=== PATIENT | female | born 2000 | race African-American/Black ===

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

== ENCOUNTER 2019-02-04 17:20 | Emergency (ER) | payer OTHER ==
[~2019-02-04] VITALS: Ht 170.1 cm; Wt 59.0 kg
[2019-02-04] MEDS ORDERED: NAPR-1071 PO (17:47)
[2019-02-04] MEDS ORDERED: METH-313 PO (17:47)
--- NOTE | 2019-02-04 17:47 | ED Neck-Back Pain/Injury ---
General Chief Complaint: Head/Cervical Problems Stated Complaint: NECK PAIN Nursing Triage Note: Pt to ED from work. Pt reports lifting a box at work this morning and felt something pop in the L side of the neck. Pt reports continuing to work all day and now symptoms have worsened. Nursing Sepsis Screen: No Definite Risk Source of Information: Patient Exam Limitations: No Limitations History of Present Illness Date Seen by Provider: Feb 04, 2019 Time Seen by Provider: 17:44 Initial Comments To ER with reports of lifting a box at work and feeling a sudden sensation of pain in her left neck no injury no falls. Location: C-Spine Timing/Duration: 1-3 Hours Severity: Moderate Pain/Injury Location: Neck Associated Symptoms: denies symptoms Allergies and Home Medications Allergies Coded Allergies: No Known Drug Allergies (Unverified , 01/12/18) Home Medications Metronidazole 500 Mg Tablet, 500 MG PO BID Prescribed by: MAURICE JOHNSTON on 02/03/18 1414 Nitrofurantoin Macrocrystal 100 Mg Capsule, 100 MG PO BID Prescribed by: MAURICE JOHNSTON on 02/03/18 1414 Ondansetron 8 Mg Tab.rapdis, 8 MG SL Q4H PRN for NAUSEA/VOMITING-1ST LINE Prescribed by: TRES MCMULLEN on 01/12/18 0949 Ondansetron 8 Mg Tab.rapdis, 8 MG PO Q6H PRN for NAUSEA/VOMITING Prescribed by: PRADEEP GEIGER on 04/20/18 2301 Patient Home Medication List Home Medication List Reviewed: Yes Review of Systems Constitutional: see HPI EENTM: see HPI Respiratory: no symptoms reported Cardiovascular: no symptoms reported Genitourinary: no symptoms reported Musculoskeletal: see HPI, neck pain Skin: no symptoms reported Psychiatric/Neurological: No Symptoms Reported Past Whrmftf-Fwccuo-Feklqk Hx Patient Social History Alcohol Use: Occasionally Uses Recreational Drug Use: Yes Drug of Choice: Marijuana 2nd Hand Smoke Exposure: No Recent Foreign Travel: No Contact w/Someone Who Travel: No Recent Infectious Disease Expo: No Recent Hopitalizations: No Seasonal Allergies Seasonal Allergies: No Past Medical History Surgeries: No Respiratory: No Currently Using CPAP: No Currently Using BIPAP: No Cardiac: No Neurological: No Genitourinary: No Gastrointestinal: No Musculoskeletal: No Endocrine: No HEENT: No Cancer: No Psychosocial: Yes Anxiety, Depression Integumentary: No Blood Disorders: No Family Medical History CHF (congestive heart failure) GRANDMA Diabetes mellitus 19 MOTHER GRANDMA No Pertinent Family Hx, Hypertension Physical Exam Vital Signs Vital Signs - First Documented 02/04/19 17:28 Temp 36.8 Pulse 67 Resp 14 B/P (MAP) 117/65 (82) Pulse Ox 99 O2 Delivery Room Air Capillary Refill : Less Than 3 Seconds Height, Weight, BMI Height: 5'7.00" Weight: 125lbs. 0oz. [id number]; 20.00 BMI Method:Stated General Appearance: No Apparent Distress, WD/WN HEENT: PERRL/EOMI, TMs Normal, Normal ENT Inspection Neck: Full Range of Motion, Normal Inspection, Limited Range of Motion, Tender Lateral (left-sided palpable muscle spasm) Respiratory: Normal Breath Sounds, No Accessory Muscle Use, No Respiratory Distress Gastrointestinal: Normal Bowel Sounds, Non Tender, Soft Neurologic/Psychiatric: Alert, Oriented x3 Skin: Normal Color, Warm/Dry Progress/Results/Core Measures Results/Orders Vital Signs/I&O 02/04/19 17:28 Temp 36.8 Pulse 67 Resp 14 B/P (MAP) 117/65 (82) Pulse Ox 99 O2 Delivery Room Air Blood Pressure Mean: 82 POS Departure Impression Primary Impression: Cervical muscle strain Qualified Codes: S16.1XXA - Strain of muscle, fascia and tendon at neck level, initial encounter Additional Impression: Torticollis Disposition: 01 HOME, SELF-CARE Condition: Stable Departure-Patient Inst. Decision time for Depature: 17:45 Ref[facility]: [facility] (PCP/Family) Primary Care Physician Patient Instructions: Torticollis, Adult Add. Discharge Instructions: 1. Return to ER for any concerns 2. Follow-up with your doctor next week 3. Medication as directed. You can try ice or heat, whichever seems to be more helpful as the one U should continue to use. All discharge instructions reviewed with patient and/or family. Voiced understanding. Scripts Naproxen (Naprosyn) 500 Mg Tablet 500 MG PO BID PRN for PAIN-MILD (1-4), #30 TAB 0 Refills Prov: SAVANNAH GLASER APRN 02/04/19 Methocarbamol (Robaxin-750) 750 Mg Tablet 750 MG PO Q4H PRN for PAIN-MODERATE (5-7), #20 TAB Prov: SAVANNAH GLASER APRN 02/04/19 SAVANNAH GLASER APRN Feb 04, 2019 17:47 POS
[2019-02-04 18:09] VITALS: BP 117/65
== END 2019-02-04 17:54 | disposition home or self-care (01) ==
LOC: EDUNIT# 17:20 → ER 17:22
DX: S16.1XXA Strain of muscle, fascia and tendon at neck level, initial encounter (principal); M43.6 Torticollis; F41.9 Anxiety disorder, unspecified; F32.9 Major depressive disorder, single episode, unspecified; Z82.49 Family history of ischemic heart disease and other diseases of the circulatory system; X50.0XXA Overexertion from strenuous movement or load, initial encounter; Y92.59 Other trade areas as the place of occurrence of the external cause
CPT/HCPCS: 99282

== ENCOUNTER 2019-06-27 19:54 | Emergency (ER) | payer SELFPAY ==
[~2019-06-27] VITALS: Ht 168 cm; Wt 55.5 kg
[~2019-06-27 19:54] MED LIST changes: +METH-313 PO; +NAPR-1071 PO
--- OUTSIDE RECORDS SUMMARY | 2019-06-27 20:00 | XMS REPORT | Continuity of Care Document ---
Author Organization Unknown Address Unknown Phone Unavailable Allergies Active Description Code Type Severity Reaction Onset Reported/Identified Relationship to Patient Clinical Status Yes No Known Drug Allergies [id number] Drug Allergy Unknown N/A 01/12/2018 Medications There is no data. Problems Date Dx Coded Attending Type Code Diagnosis Diagnosed By 06/10/2017 SAVANNAH GLASER APRN Ot N39 .0 URINARY TRACT INFECTION, SITE NOT SPECIF 06/10/2017 SAVANNAH GLASER LEATHER COLORER Ot R11 .2 NAUSEA WITH VOMITING, UNSPECIFIED 06/10/2017 SAVANNAH GLASER APRN Ot R19 .7 DIARRHEA, UNSPECIFIED 06/12/2017 SAVANNAH GLASER APRN Ot N39 .0 URINARY TRACT INFECTION, SITE NOT SPECIF 06/12/2017 SAVANNAH GLASER LEATHER COLORER Ot R11 .2 NAUSEA WITH VOMITING, UNSPECIFIED 06/12/2017 SAVANNAH GLASER APRN Ot R19 .7 DIARRHEA, UNSPECIFIED 01/12/2018 MCMULLEN DO, TRES Ot D72.82 9 ELEVATED WHITE BLOOD CELL COUNT, UNSPECI 01/12/2018 MCMULLEN DO, TRES Ot F12.10 CANNABIS ABUSE, UNCOMPLICATED 01/12/2018 MCMULLEN DO, TRES Ot F32.9 MAJOR DEPRESSIVE DISORDER, SINGLE EPISOD 01/12/2018 MCMULLEN DO, TRES Ot R10.9 UNSPECIFIED ABDOMINAL PAIN 01/12/2018 MCMULLEN DO, TRES Ot R11.2 NAUSEA WITH VOMITING, UNSPECIFIED 01/12/2018 MCMULLEN DO, TRES Ot D72.82 9 ELEVATED WHITE BLOOD CELL COUNT, UNSPECI 01/12/2018 MCMULLEN DO, TRES Ot F12.10 CANNABIS ABUSE, UNCOMPLICATED 01/12/2018 MCMULLEN DO, TRES Ot F32.9 MAJOR DEPRESSIVE DISORDER, SINGLE EPISOD 01/12/2018 MCMULLEN DO, TRES Ot R10.9 UNSPECIFIED ABDOMINAL PAIN 01/12/2018 MCMULLEN DO, TRES Ot R11.2 NAUSEA WITH VOMITING, UNSPECIFIED 02/03/2018 PRESTON PRESCOTT, MAURICE J Ot B96. 89 OTH BACTERIAL AGENTS THE CAUSE OF DIS 02/03/2018 ALLISON JOHNSTON MDUS J Ot F12. 10 CANNABIS ABUSE, UNCOMPLICATED 02/03/2018 ALLISON JOHNSTON MDUS J Ot F17.200 NICOTINE DEPENDENCE, UNSPECIFIED, UNCOMP 02/03/2018 MAURICE JOHNSTON MD J Ot F32. 9 MAJOR DEPRESSIVE DISORDER, SINGLE EPISOD 02/03/2018 MAURICE JOHNSTON MD J Ot F41. 9 ANXIETY DISORDER, UNSPECIFIED 02/03/2018 MAURICE JOHNSTON MD J Ot N39. 0 URINARY TRACT INFECTION, SITE NOT SPECIF 02/03/2018 ALLISON JOHNSTON MDUS J Ot N76. 0 ACUTE VAGINITIS 02/03/2018 MAURICE JOHNSTON MD J Ot R10. 30 LOWER ABDOMINAL PAIN, UNSPECIFIED 02/03/2018 MAURICE JOHNSTON MD J Ot Z82. 49 FAMILY HX OF ISCHEM HEART DIS AND OTH DI 02/05/2018 MAURICE JOHNSTON MD J Ot B96. 89 OTH BACTERIAL AGENTS THE CAUSE OF DIS 02/05/2018 MAURICE JOHNSTON MD Ot F12. 10 CANNABIS ABUSE, UNCOMPLICATED 02/05/2018 MAURICE JOHNSTON MD J Ot F17.200 NICOTINE DEPENDENCE, UNSPECIFIED, UNCOMP 02/05/2018 MAURICE JOHNSTON MD Ot F32. 9 MAJOR DEPRESSIVE DISORDER, SINGLE EPISOD 02/05/2018 MAURICE JOHNSTON MD J Ot F41. 9 ANXIETY DISORDER, UNSPECIFIED 02/05/2018 MAURICE JOHNSTON MD J Ot N39. 0 URINARY TRACT INFECTION, SITE NOT SPECIF 02/05/2018 MAURICE JOHNSTON MD J Ot N76. 0 ACUTE VAGINITIS 02/05/2018 MAURICE JOHNSTON MD J Ot R10. 30 LOWER ABDOMINAL PAIN, UNSPECIFIED 02/05/2018 MAURICE JOHNSTON MD J Ot Z82. 49 FAMILY HX OF ISCHEM HEART DIS AND OTH DI 02/09/2018 MAURICE JOHNTSON MD J Ot B96. 89 OTH BACTERIAL AGENTS THE CAUSE OF DIS 02/09/2018 MAURICE JOHNSTON MD J Ot F12. 10 CANNABIS ABUSE, UNCOMPLICATED 02/09/2018 ALLISON JOHNSTON MDUS J Ot F17.200 NICOTINE DEPENDENCE, UNSPECIFIED, UNCOMP 02/09/2018 PRESTON MD, MAURICE J Ot F32. 9 MAJOR DEPRESSIVE DISORDER, SINGLE EPISOD 02/09/2018 PRESTON PRESCOTT, MAURICE Roe Ot F41. 9 ANXIETY DISORDER, UNSPECIFIED 02/09/2018 PRESTON PRESCOTT, MAURICE Roe Ot N39. 0 URINARY TRACT INFECTION, SITE NOT SPECIF 02/09/2018 PRESTON PRESCOTT, MAURICE Roe Ot N76. 0 ACUTE VAGINITIS 02/09/2018 MAURICE JOHNSTON MD Ot R10. 30 LOWER ABDOMINAL PAIN, UNSPECIFIED 02/09/2018 PRESTON PRESCOTT, MAURICE Roe Ot Z82. 49 FAMILY HX OF ISCHEM HEART DIS AND OTH DI 04/20/2018 PRADEEP HERNANDEZ Ot E86.0 DEHYDRATION 04/20/2018 PRADEEP HERNANDEZ Ot F12.10 CANNABIS ABUSE, UNCOMPLICATED 04/20/2018 PRADEEP HERNANDEZ Ot F32.9 MAJOR DEPRESSIVE DISORDER, SINGLE EPISOD 04/20/2018 PRADEEP HERNANDEZ Ot F41.9 ANXIETY DISORDER, UNSPECIFIED 04/20/2018 PRADEEP HERNANDEZ Ot R11.2 NAUSEA WITH VOMITING, UNSPECIFIED 04/20/2018 PRADEEP HERNANDEZ Ot R19.7 DIARRHEA, UNSPECIFIED 04/20/2018 TANIA HERNANDEZEN Mesha Ot Z82.49 FAMILY HX OF ISCHEM HEART DIS AND OTH DI 04/21/2018 ОЛЬГА MIDDLETON MD Ot F12.10 CANNABIS ABUSE, UNCOMPLICATED 04/21/2018 ОЛЬГА MIDDLETON MD Ot F17.210 NICOTINE DEPENDENCE, CIGARETTES, UNCOMPL 04/21/2018 ОЛЬГА MIDDLETON MD Ot F32.9 MAJOR DEPRESSIVE DISORDER, SINGLE EPISOD 04/21/2018 ОЛЬГА MIDDLETON MD Ot F41.9 ANXIETY DISORDER, UNSPECIFIED 04/21/2018 ОЛЬГА MIDDLETON MD Ot G43.A0 CYCLICAL VOMITING, NOT INTRACTABLE 04/21/2018 ОЛЬГА MIDDLETON MD Ot R11.2 NAUSEA WITH VOMITING, UNSPECIFIED 04/21/2018 ОЛЬГА MIDDLETON MD Ot Z82.49 FAMILY HX OF ISCHEM HEART DIS AND OTH DI 04/23/2018 ОЛЬГА MIDDLETON MD Ot F12.10 CANNABIS ABUSE, UNCOMPLICATED 04/23/2018 ОЛЬГА MIDDLETON MD Ot F17.210 NICOTINE DEPENDENCE, CIGARETTES, UNCOMPL 04/23/2018 KANE PRESCOTT, ОЛЬГА Mohan Ot F32.9 MAJOR DEPRESSIVE DISORDER, SINGLE EPISOD 04/23/2018 KANE PRESCOTT, ОЛЬГА Mohan Ot F41.9 ANXIETY DISORDER, UNSPECIFIED 04/23/2018 ОЛЬГА MIDDLETON MD Ot G43.A0 CYCLICAL VOMITING, NOT INTRACTABLE 04/23/2018 ОЛЬГА MIDDLETON MD Ot R11.2 NAUSEA WITH VOMITING, UNSPECIFIED 04/23/2018 ОЛЬГА MIDDLETON MD Ot Z82.49 FAMILY HX OF ISCHEM HEART DIS AND OTH DI 02/04/2019 SAVANNAH GLASER APRN Ot F32 .9 MAJOR DEPRESSIVE DISORDER, SINGLE EPISOD 02/04/2019 SAVANNAH GLASER APRN Ot F41 .9 ANXIETY DISORDER, UNSPECIFIED 02/04/2019 SAVANNAH GLASER APRN Ot M43 .6 TORTICOLLIS 02/04/2019 SAVANNAH GLASER APRN Ot M54 .2 CERVICALGIA 02/04/2019 SAVANNAH GLASER APRN Ot S16.1XXA STRAIN OF MUSCLE, FASCIA AND TENDON AT N 02/04/2019 SAVANNAH GLASER APRN Ot X50.0XXA OVEREXERTION FROM STRENUOUS MOVEMENT OR 02/04/2019 SAVANNAH GLASER APRN Ot Y92.[address] 02/04/2019 SAVANNAH GLASER APRN Ot Z82.49 FAMILY HX OF ISCHEM HEART DIS AND OTH DI 02/07/2019 SAVANNAH GLASER APRN Ot F32 .9 MAJOR DEPRESSIVE DISORDER, SINGLE EPISOD 02/07/2019 SAVANNAH GLASER APRN Ot F41 .9 ANXIETY DISORDER, UNSPECIFIED 02/07/2019 SAVANNAH GLASER APRN Ot M43 .6 TORTICOLLIS 02/07/2019 SAVANNAH GLASER APRN Ot M54 .2 CERVICALGIA 02/07/2019 SAVANNAH GLASER APRN Ot S16.1XXA STRAIN OF MUSCLE, FASCIA AND TENDON AT N 02/07/2019 SAVANNAH GLASER APRN Ot X50.0XXA OVEREXERTION FROM STRENUOUS MOVEMENT OR 02/07/2019 SAVANNAH GLASER APRN Ot Y92.[address] 02/07/2019 SAVANNAH GLASER APRN Ot Z82.49 FAMILY HX OF ISCHEM HEART DIS AND OTH DI 02/09/2019 SAVANNAH GLASER APRN Ot F32 .9 MAJOR DEPRESSIVE DISORDER, SINGLE EPISOD 02/09/2019 SAVANNAH GLASER APRN Ot F41 .9 ANXIETY DISORDER, UNSPECIFIED 02/09/2019 SAVANNAH GLASER APRN Ot M43 .6 TORTICOLLIS 02/09/2019 SAVANNAH GLASER APRN Ot M54 .2 CERVICALGIA 02/09/2019 SAVANNAH GLASER APRN Ot S16.1XXA STRAIN OF MUSCLE, FASCIA AND TENDON AT N 02/09/2019 SAVANNAH GLASER APRN Ot X50.0XXA OVEREXERTION FROM STRENUOUS MOVEMENT OR 02/09/2019 SAVANNAH GLASER APRN Ot Y92.[address] 02/09/2019 SAVANNAH GLASER APRN Ot Z82.49 FAMILY HX OF ISCHEM HEART DIS AND OTH DI Procedures There is no data. Results Test Result Range Complete blood count (CBC) with automate d white blood cell (WBC) differential - 06/10/17 13:24 Blood leukocytes automated count (number/volume) 18.6 10*3/uL 4.3-11.0 Blood erythrocytes automated count (number/volume) 5.34 10*6/uL 4.35-5.85 Venous blood hemoglobin measurement (mass/volume) 11.7 g/dL 11.5-16.0 Blood hematocrit (volume fraction) 38 % 35-52 Automated erythrocyte mean corpuscular volume 71 [ foz_us] 80-99 Automated erythrocyte mean corpuscular h emoglobin (mass per erythrocyte) 22 pg 25-34 Automated erythrocyte mean corpuscular h emoglobin concentration measurement (mass/volume) 31 g/dL 32-36 Automated erythrocyte distribution width ratio 18. 2 % 10.0- 14.5 Automated blood platelet count (count/volume) 414 10*3/uL 130-400 Automated blood platelet mean volume measurement 10.8 [foz_us] 7.4-10.4 Automated blood neutrophils/100 leukocytes 89 % 42-75 Automated blood lymphocytes/100 leukocytes 6 % 12-44 Blood monocytes/100 leukocytes 5 % 0-12 Automated blood eosinophils/100 leukocytes 0 % 0-10 Automated blood basophils/100 leukocytes 0 % 0-10 Blood neutrophils automated count (number/volume) 16.6 10*3 1.8-7.8 Blood lymphocytes automated count (number/volume) 1.1 10*3 1.0-4.0 Blood monocytes automated count (number/volume) 1. 0 10*3 0.0-1.0 Automated eosinophil count 0.0 10*3/uL 0 .0-0.3 Automated blood basophil count (count/volume) 0.0 10*3/uL 0.0-0.1 Comprehensive metabolic panel - 06/10/17 13:24 Serum or plasma sodium measurement (moles/volume) 138 mmol/L 135-145 Serum or plasma potassium measurement (moles/volume) 4.4 mmol/L 3.6-5.0 Serum or plasma chloride measurement (moles/volume) 107 mmol/L 98-107 Carbon dioxide 19 mmol/L 21-32 Serum or plasma anion gap determination (moles/volume) 12 mmol/L 5-14 Serum or plasma urea nitrogen measurement (mass/volume ) 14 mg/dL 7-18 Serum or plasma creatinine measurement (mass/volume) 0.80 mg/dL 0.60-1.30 Serum or plasma urea nitrogen/creatinine mass ratio 18 NRG Serum or plasma creatinine measurement w ith calculation of estimated glomerular filtration rate > NRG Serum or plasma glucose measurement (mass/volume) 133 mg/dL 70-105 Serum or plasma calcium measurement (mass/volume) 10.3 mg/dL 8.5-10.1 Serum or plasma total bilirubin measurement (mass/volu me) 0.4 mg/dL 0.1-1.0 Serum or plasma alkaline phosphatase en surement (enzymatic activity/volume) 97 U/L 60-350 Serum or plasma aspartate aminotransfera se measurement (enzymatic activity/volume) 26 U/L 5-34 Serum or plasma alanine aminotransferase measurement (enzymatic activity/volume) 15 U/L 0-55 Serum or plasma protein measurement (mass/volume) 8.3 g/dL 6.4-8.2 Serum or plasma albumin measurement (mass/volume) 4.8 g/dL 3.2-4.5 Blood manual differential performed dete ction - 06/10/17 13:24 Blood monocytes/100 leukocytes 5 % NRG Manual blood segmented neutrophils/100 leukocytes 84 % NRG Manual blood lymphocytes/100 leukocytes 11 % NRG Complete urinalysis with reflex to cultu re - 06/10/17 14:03 Urine color determination YELLOW NRG Urine clarity determination SLIGHTLY CLOUDY NRG Urine pH measurement by test strip 8 5-9 Specific gravity of urine by test strip 1.010 1.016-1.022 Urine protein assay by test strip, semi-quantitative 2+ NEGATIVE Urine glucose detection by automated test strip NE GATIVE NEGATIVE Erythrocytes detection in urine sediment by light micr oscopy 1+ NEGATIVE Urine ketones detection by automated test strip 4+ NEGATIVE Urine nitrite detection by test strip NEGATIVE NEGATIVE Urine total bilirubin detection by test strip NEGA TIVE NEGATIVE Urine urobilinogen measurement by automated test strip (mass/volume) NORMAL NORMAL Urine leukocyte esterase detection by dipstick 2+ NEGATIVE Automated urine sediment erythrocyte cou nt by microscopy (number/high power field) NONE NRG Automated urine sediment leukocyte count by microscopy (number/high power field) [HPF] NRG Bacteria detection in urine sediment by light microsco py FEW NRG Squamous epithelial cells detection in u rine sediment by light microscopy 10-25 NRG Crystals detection in urine sediment by light microsco py NONE NRG Casts detection in urine sediment by light microscopy NONE NRG Mucus detection in urine sediment by light microscopy NEGATIVE NRG Complete urinalysis with reflex to culture YES NRG Amorphous sediment detection in urine sediment by ligh t microscopy FEW ZOLTAN PHOSPHATE NRG Bacterial urine culture - 06/10/17 14:03 Bacterial urine culture [id number] NRG COLONY COUNT >100,000/ML NRG Complete blood count (CBC) with automate d white blood cell (WBC) differential - 01/11/18 23:20 Blood leukocytes automated count (number/volume) 12.8 10*3/uL 4.3-11.0 Blood erythrocytes automated count (number/volume) 4.69 10*6/uL 4.35-5.85 Venous blood hemoglobin measurement (mass/volume) 10.2 g/dL 11.5-16.0 Blood hematocrit (volume fraction) 32 % 35-52 Automated erythrocyte mean corpuscular volume 69 [ foz_us] 80-99 Automated erythrocyte mean corpuscular h emoglobin (mass per erythrocyte) 22 pg 25-34 Automated erythrocyte mean corpuscular h emoglobin concentration measurement (mass/volume) 32 g/dL 32-36 Automated erythrocyte distribution width ratio 19. 0 % 10.0- 14.5 Automated blood platelet count (count/volume) 344 10*3/uL 130-400 Automated blood platelet mean volume measurement 10.0 [foz_us] 7.4-10.4 Automated blood neutrophils/100 leukocytes 73 % 42-75 Automated blood lymphocytes/100 leukocytes 18 % 12-44 Blood monocytes/100 leukocytes 8 % 0-12 Automated blood eosinophils/100 leukocytes 1 % 0-10 Automated blood basophils/100 leukocytes 0 % 0-10 Blood neutrophils automated count (number/volume) 9.4 10*3 1.8-7.8 Blood lymphocytes automated count (number/volume) 2.4 10*3 1.0-4.0 Blood monocytes automated count (number/volume) 1. 0 10*3 0.0-1.0 Automated eosinophil count 0.1 10*3/uL 0 .0-0.3 Automated blood basophil count (count/volume) 0.0 10*3/uL 0.0-0.1 Serum or plasma choriogonadotropin (preg chester test) detection - 01/11/18 23:20 Serum or plasma choriogonadotropin ( test) de tection NEGATIVE NEGATIVE Comprehensive metabolic panel - 01/11/18 23:20 Serum or plasma sodium measurement (moles/volume) 143 mmol/L 135-145 Serum or plasma potassium measurement (moles/volume) 3.7 mmol/L 3.6-5.0 Serum or plasma chloride measurement (moles/volume) 109 mmol/L 98-107 Carbon dioxide 19 mmol/L 21-32 Serum or plasma anion gap determination (moles/volume) 15 mmol/L 5-14 Serum or plasma urea nitrogen measurement (mass/volume ) 10 mg/dL 7-18 Serum or plasma creatinine measurement (mass/volume) 0.80 mg/dL 0.60-1.30 Serum or plasma urea nitrogen/creatinine mass ratio 13 NRG Serum or plasma creatinine measurement w ith calculation of estimated glomerular filtration rate > NRG Serum or plasma glucose measurement (mass/volume) 130 mg/dL 70-105 Serum or plasma calcium measurement (mass/volume) 9.7 mg/dL 8.5-10.1 Serum or plasma total bilirubin measurement (mass/volu me) 0.4 mg/dL 0.1-1.0 Serum or plasma alkaline phosphatase en surement (enzymatic activity/volume) 85 U/L 40-136 Serum or plasma aspartate aminotransfera se measurement (enzymatic activity/volume) 18 U/L 5-34 Serum or plasma alanine aminotransferase measurement (enzymatic activity/volume) 19 U/L 0-55 Serum or plasma protein measurement (mass/volume) 7.5 g/dL 6.4-8.2 Serum or plasma albumin measurement (mass/volume) 4.7 g/dL 3.2-4.5 Lipase - 01/11/18 23:20 Lipase 14 U/L 8-78 Serum or plasma ethanol measurement (mas s/volume) - 01/11/18 23:20 Serum or plasma ethanol measurement (mass/volume) < mg/dL <10 Complete urinalysis with reflex to cultu re - 01/12/18 00:27 Urine color determination YELLOW NRG Urine clarity determination VERY CLOUDY NRG Urine pH measurement by test strip 8 5-9 Specific gravity of urine by test strip 1.010 1.016-1.022 Urine protein assay by test strip, semi-quantitative 1+ NEGATIVE Urine glucose detection by automated test strip NE GATIVE NEGATIVE Erythrocytes detection in urine sediment by light micr oscopy 5+ NEGATIVE Urine ketones detection by automated test strip 3+ NEGATIVE Urine nitrite detection by test strip NEGATIVE NEGATIVE Urine total bilirubin detection by test strip NEGA TIVE NEGATIVE Urine urobilinogen measurement by automated test strip (mass/volume) NORMAL NORMAL Urine leukocyte esterase detection by dipstick NEG ATIVE NEGATIVE Automated urine sediment erythrocyte cou nt by microscopy (number/high power field) [HPF] NRG Automated urine sediment leukocyte count by microscopy (number/high power field) NONE NRG Bacteria detection in urine sediment by light microsco py NEGATIVE NRG Squamous epithelial cells detection in u rine sediment by light microscopy 2-5 NRG Crystals detection in urine sediment by light microsco py PRESENT NRG Casts detection in urine sediment by light microscopy NONE NRG Mucus detection in urine sediment by light microscopy NEGATIVE NRG Complete urinalysis with reflex to culture NO NRG Amorphous sediment detection in urine sediment by ligh t microscopy LARGE ZOLTAN PHOSPHATE NRG Urine drug screening test - 01/12/18 00: 27 Urine phencyclidine detection by screening method NEGATIVE NEGATIVE Urine benzodiazepines detection by screening method NEGATIVE NEGATIVE Urine cocaine detection NEGATIVE NEGATI VE Urine amphetamines detection by screening method N EGATIVE NEGATIVE Urine methamphetamine detection by screening method NEGATIVE NEGATIVE Urine cannabinoids detection by screening method P OSITIVE NEGATIVE Urine opiates detection by screening method NEGATI VE NEGATIVE Urine barbiturates detection NEGATIVE N EGATIVE Screening urine tricyclic antidepressants detection NEGATIVE NEGATIVE Urine methadone detection by screening method NEGA TIVE NEGATIVE Urine oxycodone detection NEGATIVE NEGA TIVE Urine propoxyphene detection NEGATIVE N EGATIVE Complete urinalysis with reflex to cultu re - 02/03/18 12:30 Urine color determination YELLOW NRG Urine clarity determination CLEAR NR G Urine pH measurement by test strip 6 5-9 Specific gravity of urine by test strip 1.020 1.016-1.022 Urine protein assay by test strip, semi-quantitative 1+ NEGATIVE Urine glucose detection by automated test strip NE GATIVE NEGATIVE Erythrocytes detection in urine sediment by light micr oscopy 3+ NEGATIVE Urine ketones detection by automated test strip 4+ NEGATIVE Urine nitrite detection by test strip NEGATIVE NEGATIVE Urine total bilirubin detection by test strip NEGA TIVE NEGATIVE Urine urobilinogen measurement by automated test strip (mass/volume) 1 mg/dL NORMAL Urine leukocyte esterase detection by dipstick 2+ NEGATIVE Automated urine sediment erythrocyte cou nt by microscopy (number/high power field) [HPF] NRG Automated urine sediment leukocyte count by microscopy (number/high power field) [HPF] NRG Bacteria detection in urine sediment by light microsco py TRACE NRG Squamous epithelial cells detection in u rine sediment by light microscopy 2-5 NRG Crystals detection in urine sediment by light microsco py NONE NRG Casts detection in urine sediment by light microscopy NONE NRG Mucus detection in urine sediment by light microscopy MODERATE NRG Complete urinalysis with reflex to culture YES NRG Bacterial urine culture - 02/03/18 12:30 Bacterial urine culture SEE REPORT NRG COLONY COUNT . NRG Microscopic examination by wet preparati on - 02/03/18 13:10 WET PREP RESULTS NO YEAST OBSERVED, NO TRICH OMONAS OBSERVED NRG Chlamydia trachomatis DNA detection by p robe and signal amplification method - 02/03/18 13:10 Chlamydia trachomatis DNA detection by p robe and target amplification method Not Detected Not Detected Neisseria gonorrhoeae DNA detection by p robe and signal amplification method - 02/03/18 13:10 Gonorrhea amp DNA-urine Not Detected No t Detected Complete blood count (CBC) with automate d white blood cell (WBC) differential - 04/20/18 20:30 Blood leukocytes automated count (number/volume) 16.9 10*3/uL 4.3-11.0 Blood erythrocytes automated count (number/volume) 5.30 10*6/uL 4.35-5.85 Venous blood hemoglobin measurement (mass/volume) 10.6 g/dL 11.5-16.0 Blood hematocrit (volume fraction) 36 % 35-52 Automated erythrocyte mean corpuscular volume 67 [ foz_us] 80-99 Automated erythrocyte mean corpuscular h emoglobin (mass per erythrocyte) 20 pg 25-34 Automated erythrocyte mean corpuscular h emoglobin concentration measurement (mass/volume) 30 g/dL 32-36 Automated erythrocyte distribution width ratio 20. 1 % 10.0- 14.5 Automated blood platelet count (count/volume) 322 10*3/uL 130-400 Automated blood platelet mean volume measurement 10.9 [foz_us] 7.4-10.4 Automated blood neutrophils/100 leukocytes 87 % 42-75 Automated blood lymphocytes/100 leukocytes 10 % 12-44 Blood monocytes/100 leukocytes 3 % 0-12 Automated blood eosinophils/100 leukocytes 0 % 0-10 Automated blood basophils/100 leukocytes 0 % 0-10 Blood neutrophils automated count (number/volume) 14.8 10*3 1.8-7.8 Blood lymphocytes automated count (number/volume) 1.7 10*3 1.0-4.0 Blood monocytes automated count (number/volume) 0. 5 10*3 0.0-1.0 Automated eosinophil count 0.0 10*3/uL 0 .0-0.3 Automated blood basophil count (count/volume) 0.0 10*3/uL 0.0-0.1 Comprehensive metabolic panel - 04/20/18 20:30 Serum or plasma sodium measurement (moles/volume) 140 mmol/L 135-145 Serum or plasma potassium measurement (moles/volume) 3.9 mmol/L 3.6-5.0 Serum or plasma chloride measurement (moles/volume) 108 mmol/L 98-107 Carbon dioxide 19 mmol/L 21-32 Serum or plasma anion gap determination (moles/volume) 13 mmol/L 5-14 Serum or plasma urea nitrogen measurement (mass/volume ) 17 mg/dL 7-18 Serum or plasma creatinine measurement (mass/volume) 0.77 mg/dL 0.60-1.30 Serum or plasma urea nitrogen/creatinine mass ratio 22 NRG Serum or plasma creatinine measurement w ith calculation of estimated glomerular filtration rate > NRG Serum or plasma glucose measurement (mass/volume) 133 mg/dL 70-105 Serum or plasma calcium measurement (mass/volume) 9.3 mg/dL 8.5-10.1 Serum or plasma total bilirubin measurement (mass/volu me) 0.3 mg/dL 0.1-1.0 Serum or plasma alkaline phosphatase en surement (enzymatic activity/volume) 81 U/L 40-136 Serum or plasma aspartate aminotransfera se measurement (enzymatic activity/volume) 22 U/L 5-34 Serum or plasma alanine aminotransferase measurement (enzymatic activity/volume) 17 U/L 0-55 Serum or plasma protein measurement (mass/volume) 7.3 g/dL 6.4-8.2 Serum or plasma albumin measurement (mass/volume) 4.5 g/dL 3.2-4.5 CALCIUM CORRECTED 8.9 mg/dL 8.5-10.1 Lipase - 04/20/18 20:30 Lipase 9 U/L 8-78 Blood manual differential performed dete ction - 04/20/18 20:30 Blood monocytes/100 leukocytes 2 % NRG Manual blood segmented neutrophils/100 leukocytes 88 % NRG Manual blood lymphocytes/100 leukocytes 10 % NRG Blood anisocytosis detection by light microscopy M ARKED NRG Blood ovalocytes detection by light microscopy SLI GHT NRG Blood poikilocytosis detection by light microscopy MARKED NRG Blood hypochromia detection by light microscopy MO DERATE NRG Blood microcytes detection by light microscopy MOD ERATE NRG Blood spherocytes detection by light microscopy SL IGHT NRG Blood schistocytes detection by light microscopy S LIGHT NRG Serum heterophile antibody titer - 04/20 20:30 Serum heterophile antibody titer NEGATIVE NEGATIVE Influenza virus A and B antigen detectio n - 04/20/18 20:47 FLU RESULT NEGATIVE FOR INFLUENZA A AND B ANTIGENS BY IA NRG Complete urinalysis with reflex to cultu re - 04/20/18 21:42 Urine color determination YELLOW NRG Urine clarity determination CLEAR NR G Urine pH measurement by test strip 7 5-9 Specific gravity of urine by test strip 1.010 1.016-1.022 Urine protein assay by test strip, semi-quantitative NEGATIVE NEGATIVE Urine glucose detection by automated test strip NE GATIVE NEGATIVE Erythrocytes detection in urine sediment by light micr oscopy 3+ NEGATIVE Urine ketones detection by automated test strip 3+ NEGATIVE Urine nitrite detection by test strip NEGATIVE NEGATIVE Urine total bilirubin detection by test strip NEGA TIVE NEGATIVE Urine urobilinogen measurement by automated test strip (mass/volume) NORMAL NORMAL Urine leukocyte esterase detection by dipstick NEG ATIVE NEGATIVE Automated urine sediment erythrocyte cou nt by microscopy (number/high power field) [HPF] NRG Automated urine sediment leukocyte count by microscopy (number/high power field) [HPF] NRG Bacteria detection in urine sediment by light microsco py TRACE NRG Squamous epithelial cells detection in u rine sediment by light microscopy 2-5 NRG Crystals detection in urine sediment by light microsco py NONE NRG Casts detection in urine sediment by light microscopy NONE NRG Mucus detection in urine sediment by light microscopy NEGATIVE NRG Complete urinalysis with reflex to culture NO NRG Streptococcus pyogenes antigen detection - 04/20/18 22:00 Streptococcus pyogenes antigen detection NEGATIVE NEGATIVE Bacterial throat culture - 04/20/18 22:0 0 Bacterial throat culture NBS NRG HEPATITIS PROFILE - 06/07/18 09:22 HEPATITIS A IGM NON-REACTIVE NON-REACTI VE HEPATITIS B SURFACE ANTIGEN NON-REACTIVE NON-REACTIVE HEPATITIS B CORE ANTIBODY (IGM) NON-REACTIVE NON-REACTIVE HEPATITIS C ANTIBODY NON-REACTIVE NON-R EACTIVE SIGNAL TO CUT-OFF 0.03 <1.00 Encounters ACCT No. Visit Date/Time Discharge Status Pt. Type Provider Facility Loc./Unit Complaint [id number] 06/22/2019 14:20:00 06/22/2019 23:59:5 9 [facility] Outpatient PEPITO PRESCOTT, JES PEREZ TIFFANIE [facility] [id number] 06/07/2018 09:00:00 Document Registration [id number] 02/04/2019 17:22:00 17:54:00 DIS Outpatient SAVANNAH GLASER APRN Via [facility] ER NECK PAIN [id number] 04/21/2018 02:48:00 04:55:00 DIS Emergency ОЛЬГА MIDDLETON MD [facility] ER VOMITING,NAUSEA [id number] 04/20/2018 19:56:00 23:18:00 DIS Emergency PRADEEP HERNANDEZ [facility] ER VOMITTING,SHAKING,FEVE R [id number] 02/03/2018 10:41:00 14:10:00 DIS Emergency MAURICE JOHNSTON MD [facility] ER HERNIA [id number] 01/11/2018 22:53:00 018 14:16:00 DIS Inpatient TRES MCMULLEN DO, V [facility] 4TH GENERALIZED ABD PAIN,IN TRACTABLE N,V [id number] 06/10/2017 12:25:00 15:44:00 DIS Emergency SAVANNAH GLASER APRN [facility] ER CHEST DISCOMFORT/SOB/VO MITING
[2019-06-27] MEDS ORDERED: FAMOTIDINE 20MG/2ML IV (PEPCID) IV STA (20:14)
[2019-06-27] MEDS ORDERED: LACTATED RINGERS 1,000 ML IV STA ×2 (20:14→20:50)
[2019-06-27] MEDS ORDERED: KETOROLAC 30 MG/ML VIAL IVP STA (20:14)
[2019-06-27] MEDS ORDERED: ONDANSETRON 4 MG/2 ML (SDV) Z0FRAN IVP ONE ×2 (20:15→21:00)
[2019-06-27 20:30] LABS: BASOPHILS % (AUTO) 0 % (0-10); EOSINOPHILS % (AUTO) 0 % (0-10); HEMATOCRIT 49 % (35-52); HEMOGLOBIN 16.1 G/DL (11.5-16.0); LYMPHOCYTES % (AUTO) 23 % (12-44); MEAN CORPUSCULAR HEMOGLOBIN 27 PG (25-34); MEAN CORPUSCULAR HGB CONC 33 G/DL (32-36); MEAN CORPUSCULAR VOLUME 83 FL (80-99); MEAN PLATELET VOLUME 10.3 FL (7.4-10.4); MONOCYTES # (AUTO) 0.9 X 10^3 (0.0-1.0); MONOCYTES % (AUTO) 7 % (0-12); NEUTROPHILS # (AUTO) 9.3 X 10^3 (1.8-7.8); NEUTROPHILS % (AUTO) 70 % (42-75); PLATELET COUNT 344 10^3/uL (130-400); RED CELL DISTRIBUTION WIDTH 14.9 % (10.0-14.5); WHITE BLOOD COUNT 13.2 10^3/uL (4.3-11.0)
--- NOTE | 2019-06-27 20:30 | ED General ---
General Chief Complaint: Substance Abuse Stated Complaint: "ALCOHOL POISONING" Source of Information: Patient Exam Limitations: No Limitations History of Present Illness Date Seen by Provider: Jun 27, 2019 Time Seen by Provider: 20:07 Initial Comments Here with report of nausea and vomiting. She apparently drank quite a bit was the last night and woke up this morning with a hangover. She's had nausea and vomiting today as well as some abdominal pain. She has tried fluids and noodles and is unable to keep anything down. She is currently vomiting now. Denies fever or chills. Denies other illnesses. Denies contact with anybody sick. She does not drink often and certainly not to the amount that she drank last night. Timing/Duration: 12 Hours Severity: Moderate Associated Systoms: No Chest Pain, No Cough, No Fever/Chills; Nausea/Vomiting; No Shortness of Air, No Weakness Allergies and Home Medications Allergies Coded Allergies: No Known Drug Allergies (Unverified , 01/12/18) Home Medications Methocarbamol 750 Mg Tablet, 750 MG PO Q4H PRN for PAIN-MODERATE (5-7) Prescribed by: SAVANNAH GLASER on 02/04/19 174 Metronidazole 500 Mg Tablet, 500 MG PO BID Prescribed by: MAURICE JOHNSTON on 02/03/18 1414 Naproxen 500 Mg Tablet, 500 MG PO BID PRN for PAIN-MILD (1-4) Prescribed by: SAVANNAH GLASER on 02/04/19 174 Nitrofurantoin Macrocrystal 100 Mg Capsule, 100 MG PO BID Prescribed by: MAURICE JOHNSTON on 02/03/18 1414 Ondansetron 8 Mg Tab.rapdis, 8 MG SL Q4H PRN for NAUSEA/VOMITING-1ST LINE Prescribed by: TRES MCMULLEN on 01/12/18 0949 Ondansetron 8 Mg Tab.rapdis, 8 MG PO Q6H PRN for NAUSEA/VOMITING Prescribed by: PRADEEP GEIGER on 04/20/18 2300 Patient Home Medication List Home Medication List Reviewed: Yes Review of Systems Review of Systems Constitutional: see HPI; No chills, No fever EENTM: no symptoms reported Respiratory: no symptoms reported Cardiovascular: no symptoms reported Gastrointestinal: see HPI Genitourinary: no symptoms reported Musculoskeletal: no symptoms reported Past [place] Hx Past Med/Social Hx: Reviewed Nursing Past Med/Soc Hx Patient Social History Alcohol Use: Occasionally Uses Recreational Drug Use: Yes Drug of Choice: Marijuana Smoking Status: Never a Smoker 2nd Hand Smoke Exposure: No Recent Hopitalizations: No Seasonal Allergies Seasonal Allergies: No Past Medical History Surgeries: No Respiratory: No Currently Using CPAP: No Currently Using BIPAP: No Cardiac: No Neurological: No Genitourinary: No Gastrointestinal: No Musculoskeletal: No Endocrine: No HEENT: No Cancer: No Psychosocial: Yes Anxiety, Depression Integumentary: No Blood Disorders: No Family Medical History Reviewed Nursing Family Hx CHF (congestive heart failure) GRANDMA Diabetes mellitus 19 MOTHER GRANDMA No Pertinent Family Hx, Hypertension Physical Exam Vital Signs Capillary Refill : Height, Weight, BMI Height: 5'7.00" Weight: 125lbs. 0oz. 56.691226kp; 20.00 BMI Method:Stated General Appearance: WD/WN, Mild Distress HEENT: PERRL/EOMI, Pharynx Normal Neck: Non Tender, Supple Respiratory: Lungs Clear, Normal Breath Sounds Cardiovascular: No Murmur, Tachycardia Gastrointestinal: Soft, Tenderness (epigastric region that she states is muscular pain and vomiting that occurred at that) Back: Normal Inspection, No CVA Tenderness, No Vertebral Tenderness Neurologic/Psychiatric: Alert, Oriented x3 Skin: Normal Color, Warm/Dry Progress/Results/Core Measures Suspected Sepsis SIRS Temperature: Pulse: Respiratory Rate: Laboratory Tests 06/27/19 20:15: White Blood Count 13.2H Blood Pressure / Mean: Laboratory Tests 06/27/19 20:15: Creatinine 0.93, Platelet Count 344, Total Bilirubin 0.7 Results/Orders Lab Results Laboratory Tests Test 06/27/19 20:15 Range/Units White Blood Count 13.2 H 4.3-11.0 10^3/uL Red Blood Count 5.94 H 4.35-5.85 10^6/uL Hemoglobin 16.1 H 11.5-16.0 G/DL Hematocrit 49 35-52 % Mean Corpuscular Volume 83 80-99 FL Mean Corpuscular Hemoglobin 27 25-34 PG Mean Corpuscular Hemoglobin Concent 33 32-36 G/DL Red Cell Distribution Width 14.9 H 10.0-14.5 % Platelet Count 344 130-400 10^3/uL Mean Platelet Volume 10.3 7.4-10.4 FL Neutrophils (%) (Auto) 70 42-75 % Lymphocytes (%) (Auto) 23 12-44 % Monocytes (%) (Auto) 7 0-12 % Eosinophils (%) (Auto) 0 0-10 % Basophils (%) (Auto) 0 0-10 % Neutrophils # (Auto) 9.3 H 1.8-7.8 X 10^3 Lymphocytes # (Auto) 3.0 1.0-4.0 X 10^3 Monocytes # (Auto) 0.9 0.0-1.0 X 10^3 Eosinophils # (Auto) 0.0 0.0-0.3 10^3/uL Basophils # (Auto) 0.0 0.0-0.1 10^3/uL Sodium Level 142 135-145 MMOL/L Potassium Level 3.9 3.6-5.0 MMOL/L Chloride Level 106 98-107 MMOL/L Carbon Dioxide Level 19 L 21-32 MMOL/L Anion Gap 17 H 5-14 MMOL/L Blood Urea Nitrogen 15 7-18 MG/DL Creatinine 0.93 0.60-1.30 MG/DL Estimat Glomerular Filtration Rate > 60 BUN/Creatinine Ratio 16 Glucose Level 115 H 70-105 MG/DL Calcium Level 10.4 H 8.5-10.1 MG/DL Corrected Calcium 8.5-10.1 MG/DL Total Bilirubin 0.7 0.1-1.0 MG/DL Aspartate Amino Transf (AST/SGOT) 36 H 5-34 U/L Alanine Aminotransferase (ALT/SGPT) 52 0-55 U/L Alkaline Phosphatase 71 40-136 U/L Total Protein 8.5 H 6.4-8.2 GM/DL Albumin 4.9 H 3.2-4.5 GM/DL Serum Test, Qualitative NEGATIVE NEGATIVE My Orders Orders - ОЛЬГА MIDDLETON MD Ondansetron Injection (Zofran Injectio (06/27/19 20:15) Lactated Ringers (Lr 1000 Ml Iv Solution (06/27/19 20:14) Famotidine Injection (Pepcid Injection) (06/27/19 20:14) Ed Iv/Invasive Line Start (06/27/19 20:14) Cbc With Automated Diff (06/27/19 20:14) Comprehensive Metabolic Panel (06/27/19 20:14) Hcg,Qualitative Serum (06/27/19 20:14) Ketorolac Injection (Toradol Injection) (06/27/19 20:14) Pantoprazole Injection (Protonix Injecti (06/27/19 21:00) Ondansetron Injection (Zofran Injectio (06/27/19 21:00) Lactated Ringers (Lr 1000 Ml Iv Solution (06/27/19 20:50) Promethazine Injection (Phenergan Injec (06/27/19 21:10) Diphenhydramine Injection (Benadryl Inje (06/27/19 21:15) Medications Given in ED Current Medications Medications Dose Ordered Sig/Jaye Route Start Time Stop Time Status Last Admin Dose Admin Diphenhydramine HCl 25 mg ONCE ONCE IV 06/27/19 21:15 06/27/19 21:16 DC 06/27/19 21:16 25 MG Ondansetron HCl 4 mg ONCE ONCE IVP 06/27/19 20:15 06/27/19 20:16 DC 06/27/19 20:22 4 MG Ondansetron HCl 4 mg ONCE ONCE IVP 06/27/19 21:00 06/27/19 21:01 DC 06/27/19 20:58 4 MG Pantoprazole 40 mg ONCE ONCE IV 06/27/19 21:00 06/27/19 21:01 DC 06/27/19 20:58 40 MG Vital Signs/I&O Capillary Refill : Progress Note : Progress Note Seen and evaluated. IV, labs, LR 1 L bolus, Zofran 4 mg IV, Pepcid 20 mg IV and Toradol 15 mg IV ordered. Monitor patient. 2148: Patient did receive additional dose of Zofran 4 mg IV and repeat LR 1 L bolus. She did receive Phenergan 12.5 mg IV and Benadryl 25 mg IV as well as Protonix 40 mg IV. Overall she is starting to feel better now. Second liter of fluids nearly complete. She is still having some nausea that has been trying to sip water. We've instructed her to only do small sips but that she would be a right for a while without that given that we've given her 2 liters of fluid. She's had similar presentations previously of cyclic vomiting. She denies any significant or persistent marijuana use but still uses it occasionally. I instructed her to avoid alcohol and marijuana. We will send her home with a go pack of Zofran. Discharged home with return precautions. Patient verbalize understanding instructions and agreement with plan. Departure Impression Primary Impression: Nausea and vomiting Qualified Codes: R11.2 - Nausea with vomiting, unspecified Additional Impression: Hangover effect Qualified Codes: F10.120 - Alcohol abuse with intoxication, uncomplicated Disposition: 01 HOME, SELF-CARE Condition: Stable Departure-Patient Inst. Decision time for Depature: 21:50 Referrals: [facility] [place] Primary Care Physician Patient Instructions: ALCOHOL AND SUBSTANCE ABUSE, Nausea and Vomiting, Adult (DC) Add. Discharge Instructions: All discharge instructions reviewed with patient and/or family. Voiced understanding. Take medications as instructed. Follow-up with your Dr. in a few days for recheck. Avoid alcohol and marijuana. Clear liquids only tonight and only small sips occasionally and then more frequently as tolerated. You may resume light diet tomorrow normal diet when tolerated. Return for worse pain, fever, vomiting, weakness, breathing problems or other concerns as needed. ОЛЬГА MIDDLETON MD Jun 27, 2019 20:30
[2019-06-27 20:42] LABS: ALANINE AMINOTRANSFERASE 52 U/L (0-55); ALBUMIN 4.9 GM/DL (3.2-4.5); ALKALINE PHOSPHATASE 71 U/L (40-136); BILIRUBIN,TOTAL 0.7 MG/DL (0.1-1.0); BUN/CREATININE RATIO 16; CALCIUM 10.4 MG/DL (8.5-10.1); CARBON DIOXIDE 19 MMOL/L (21-32); CHLORIDE 106 MMOL/L (98-107); CREATININE SERUM 0.93 MG/DL (0.60-1.30); GFR ESTIMATED > 60; GLUCOSE 115 MG/DL (70-105); POTASSIUM 3.9 MMOL/L (3.6-5.0); SODIUM 142 MMOL/L (135-145); TOTAL PROTEIN 8.5 GM/DL (6.4-8.2)
[2019-06-27] MEDS ORDERED: PANTOPRAZOLE 40 MG (PROTONIX) VIAL IV ONE (21:00)
[2019-06-27] MEDS ORDERED: PROMETHAZINE INJ 25 MG/ML (PHENERGAN) AMP IVP STA (21:10)
[2019-06-27] MEDS ORDERED: diphenhydrAMINE 50 MG/ML INJ (BENADRYL) IV ONE (21:15)
[2019-06-27] MEDS ORDERED: RX-ONDANSETRON 4 MG ODT (ZOFRAN) PPK #4 PO STA (21:47)
[2019-06-27 21:54] VITALS: BP 129/81
== END 2019-06-27 22:02 | disposition home or self-care (01) ==
LOC: EDUNIT# 19:54 → ER 19:55
DX: F10.129 Alcohol abuse with intoxication, unspecified (principal); Z82.49 Family history of ischemic heart disease and other diseases of the circulatory system
CPT/HCPCS: 36415; 80053; 84703; 85025; 96361; 96374; 96375; 96376